=== PATIENT | male | born 1995 | race Caucasian/White ===

== ENCOUNTER 2020-08-08 19:46 | Inpatient (IN) ==
[2020-08-08] MEDS ORDERED: FAMOTIDINE 20MG IV PUSH 20 MG/5 ML SYR IV STA (20:18)
[2020-08-08] MEDS ORDERED: SODIUM CHLORIDE 0.9% 1000ML 1,000 ML IV SCH (20:30)
[2020-08-08 20:58] LABS: Appearance Urine Clear (Clear); Bilirubin Urine Negative (Negative); Blood Urine Negative (Negative); Color Urine Yellow; Glucose Urine UA Negative (Negative); Ketones Urine Negative (Negative); Leukocyte Esterase Urine Negative (Negative); Nitrite Urine Negative (Negative); Protein Urine Negative (Negative); Specific Gravity Urine 1.011 (1.000-1.030); Urobilinogen Urine Negative (Negative); pH Urine 6.5 (4.5-7.5)
[2020-08-08 21:17] LABS: Amphetamines+Metham, Urine Neg (Neg); Barbiturates, Urine Neg (Neg); Benzodiazepine, Urine Neg (Neg); Cocaine, Urine Neg (Neg); MDMA (Ecstacy), Urine Neg (Neg); Methadone, Urine Neg (Neg); Opiate, Urine Neg (Neg); Phencyclidine, Urine Neg (Neg)
[2020-08-08 21:39] LABS: Basophils # (auto) 0.03 K/uL (0-0.2); Basophils % (auto) 0.6 %; Eosinophils # (auto) 0.13 K/uL (0-0.5); Eosinophils % (auto) 2.5 %; Hematocrit (blood only) 46.5 % (42-52); Hemoglobin 16.8 g/dL (14.0-18.0); Immature Granulocytes # (auto) 0.04 K/uL (0.00-0.02); Immature Granulocytes % (auto) 0.8 %; Lymphocytes # (auto) 2.05 K/uL (1.2-3.4); Lymphocytes % (auto) 39.1 %; Mean Corpuscular Hemoglobin 31.4 pg (25-34); Mean Corpuscular Hgb Conc 36.1 g/dL (32-36); Mean Corpuscular Volume 86.9 fL (80-100); Mean Platelet Volume 11.1 fL (7.4-10.4); Monocytes # (auto) 0.56 K/uL (0.11-0.59); Monocytes % (auto) 10.7 %; Neutrophils # (auto) 2.43 K/uL (1.4-6.5); Neutrophils % (auto) 46.3 %; Platelet Count 248 K/uL (130-400); RDW Coefficient of Variation 12.6 % (11.5-14.5); RDW Standard Deviation 40.1 fL (36.4-46.3); Red Blood Count 5.35 M/uL (4.7-6.1); White Blood Count 5.24 K/uL (4.8-10.8)
[2020-08-08 21:56] LABS: Partial Thromboplastin Time 25.4 Seconds (21.0-31.0)
[2020-08-08 22:14] LABS: Albumin Globulin Ratio 1.3 (0.9-2); Albumin Level 4.1 gm/dl (3.4-5.0); BUN Creatinine Ratio 10.2 (10-20); Bilirubin,Total 0.9 mg/dl (0.2-1); Calcium 8.7 mg/dl (8.5-10.1); Creatinine Clr Calc Pharmacy 121.5 ml/min; Est GFR (African American) 127.7; Est GFR (Non-African American) 110.2; Globulin 3.2 gm/dl (2.5-4.0); Total Protein 7.3 gm/dl (6.4-8.2)
[2020-08-08 22:19] LABS: Acetaminophen 214 ug/ml (10-30); Salicylate < 1.7 mg/dl (2.8-20)
[2020-08-08 22:23] LABS: Potassium 3.5 mmol/L (3.5-5.1)
[2020-08-08] MEDS ORDERED: DEXTROSE 5% IV ONE ×2 (22:29→23:32)
[2020-08-08] MEDS ORDERED: AcetylCYSTEINE IV 21 HR REGIMEN (>40KG) IV STA (22:29)
[2020-08-08] MEDS ORDERED: ACETYLCYSTEINE IV ONE ×2 (22:29→23:32)
[2020-08-08 22:36] LABS: Magnesium 2.5 mg/dl (1.8-2.4)
[2020-08-08 23:36] LABS: Influenza A virus by PCR Negative (Neg); Influenza B virus by PCR Negative (Neg); RSV by PCR Negative (Neg); SARS CoV2 RNA(COVID-19) InHosp NEGATIVE (Negative)
--- NOTE | 2020-08-09 00:11 | Emergency Department Note ---
History of Present Illness General Chief complaint: Overdose (Accidental) Stated complaint: OVERDOSE ON MEDICINE Time Seen by Provider: 08/08/20 20:10 History of Present Illness Maximum Pain Intensity: 8 This is a 25-year-old male presenting to the emergency department for evaluation of possible ibuprofen overdose. The patient states that he had body aches and fever today, and took several pills of ibuprofen. This did not initially help his symptoms, and he took increasing and escalating dosage of the medication. He estimates that he took 15 to 20 pills over 3 to 4-hour period. The patient did have vomiting just prior to arrival that he states was primarily water and possibly some of the pills. He is not having significant chest pain, chest tightness, shortness of breath, or abdominal pain. He has a history of anxiety and depression that was previously treated but he is no longer taking medication for this. He states this was not an attempt to harm himself. He rates his discomfort an 8/10. Home Medications Medication Instructions Recorded Confirmed Type No Known Home Medications 08/08/20 08/08/20 History Allergies Allergy/AdvReac Type Severity Reaction Status Date / Time basil Allergy Swelling Verified 03/29/20 00:41 of Lip/Tongue/Throat Past Med/Surg History Medical History No pertinent past medical history Surgical History No pertinent past surgical history Social History Smoking Status: Never smoker Preferred Language: Cameroonian Feels Safe at Home: Yes Review of Systems A total of 10 systems reviewed and were otherwise negative Physical Exam Vital Signs Vital Signs - 24 hr 08/08/20 19:57 08/08/20 21:00 08/08/20 21:04 Temperature 36.6 C Temperature Source Temporal Artery Scan Pulse Rate 128 H 77 Pulse Rate [Bilateral] 73 Pulse Rate from SpO2 Sensor 78 Pulse Rhythm [Bilateral] Regular Pulse Strength [Bilateral] Normal Respiratory Rate 18 17 20 Respiratory Effort / Characteristics Non-Labored Spontaneous Respiratory Depth Normal Normal Respiratory Pattern Regular Blood Pressure 105/64 116/73 Blood Pressure [Right Arm] 116/73 Blood Pressure Mean 77 87 Blood Pressure Mean [Right Arm] 87 Blood Pressure Position [Right Arm] Lying Pulse Oximetry 97 96 99 Oxygen Delivery Method Room Air Room Air Room Air Sepsis Recent Fever Within 48 Hours Yes Sepsis New/Unexplained Change in Mental Status No Sepsis Action Taken by Nursing No Action Required 08/08/20 21:30 08/08/20 22:00 08/08/20 22:39 Temperature Temperature Source Pulse Rate 78 72 77 Pulse Rate [Bilateral] Pulse Rate from SpO2 Sensor 79 73 85 Pulse Rhythm [Bilateral] Pulse Strength [Bilateral] Respiratory Rate 19 21 13 Respiratory Effort / Characteristics Respiratory Depth Respiratory Pattern Blood Pressure 106/59 L 110/67 105/76 Blood Pressure [Right Arm] Blood Pressure Mean 74 81 85 Blood Pressure Mean [Right Arm] Blood Pressure Position [Right Arm] Pulse Oximetry 97 99 99 Oxygen Delivery Method Room Air Room Air Room Air Sepsis Recent Fever Within 48 Hours Sepsis New/Unexplained Change in Mental Status Sepsis Action Taken by Nursing 08/08/20 23:00 08/08/20 23:30 08/09/20 00:00 Temperature Temperature Source Pulse Rate 101 H 96 H 102 H Pulse Rate [Bilateral] Pulse Rate from SpO2 Sensor 104 H 103 H 100 H Pulse Rhythm [Bilateral] Pulse Strength [Bilateral] Respiratory Rate 22 16 15 Respiratory Effort / Characteristics Respiratory Depth Respiratory Pattern Blood Pressure 120/73 132/97 129/85 Blood Pressure [Right Arm] Blood Pressure Mean 88 108 99 Blood Pressure Mean [Right Arm] Blood Pressure Position [Right Arm] Pulse Oximetry 99 98 98 Oxygen Delivery Method Room Air Sepsis Recent Fever Within 48 Hours Sepsis New/Unexplained Change in Mental Status Sepsis Action Taken by Nursing VITALS: Vitals are noted on the nurse's note and reviewed by myself. Vital signs stable. GENERAL: Well-developed, well-nourished, white male, who is in no acute distress and resting comfortably. Patient is cooperative with the examination. HEAD: Normocephalic atraumatic. EARS: External ear normal. External auditory canals clear, tympanic membranes pearly munoz without erythema or effusion bilaterally. EYES: Pupils equal round and reactive to light and accommodation. Conjunctivae without injection, sclerae without icterus. Extraocular movements intact. NOSE: Patent, turbinates without inflammation or discharge. MOUTH: Mucous membranes moist. Tonsils are not enlarged. Pharynx without erythema, blood, or exudate. Uvula midline. Airway patent. NECK: Supple without nuchal rigidity. No lymphadenopathy. No thyromegaly. Cervical spine is nontender. HEART: Regular rate and rhythm without murmurs gallops or rubs. LUNGS: Clear to auscultation bilaterally without wheezes, rales or rhonchi. No retractions or accessory muscle use. ABDOMEN: Positive normal bowel sounds x 4. Soft, nontender, without masses or organomegaly. No guarding or rebound tenderness. MUSCULOSKELETAL: No muscle atrophy, erythema, or edema noted. Full range of motion in all extremities. No tenderness to palpation. Normal gait. Strength 5/5 throughout. NEURO: Patient was alert and oriented to person place and time. CN II through XII grossly intact. No focal neurological deficits. Deep tendon reflexes 2+ throughout. SKIN: The skin was without rashes, erythema, edema, or bruising. Capillary refill less than 2 seconds. Course Administered Medications Discontinued Medications Acetylcysteine (Acetylcysteine Iv 21 Hr Regimen (>40kg)) 1 ea IV NOW STA; Protocol Stop: 08/08/20 22:30 Last Admin: 08/08/20 23:07 Dose: Not Given Documented by: [id number] Sodium Chloride (Nss 1000ml) 1,000 mls @ 999 mls/hr IV .Q1H1M GUSTAVO Stop: 08/08/20 21:30 Last Infusion: 08/08/20 21:32 Dose: 0 mls/hr Documented by: [id number] Admin: 08/08/20 20:34 Dose: 999 mls/hr Documented by: [id number] Famotidine (Pepcid 20mg Iv Push) 20 mg in 5 mls @ 2.5 mls/min IV NOW STA Stop: 08/08/20 20:19 Last Admin: 08/08/20 20:53 Dose: 2.5 mls/min Documented by: [id number] Acetylcysteine 10,860 mg/ (Dextrose) 254.3 mls @ 200 mls/hr IV ONCE ONE Stop: 08/08/20 23:45 Last Admin: 08/08/20 22:56 Dose: 200 mls/hr Documented by: [id number] Critical Care Time Critical Care Time: Yes I have personally spent greater than 30 minutes of critical care time in the direct management of this patient. This includes bedside care, interpretation of diagnostic studies, and testing, discussion with consultants, patient, and family members, and other required patient management activities. This 30 minutes is in excess of all separately billable procedures. Medical Decision Making Differential Diagnosis Differential includes overdose on Tylenol/aspirin/ethanol, ethylene glycol, methanol, prescribed medications, not prescribe medications/street drugs, metabolic process, traumatic process. Laboratory Data Result diagrams: 08/08/20 20:26 08/08/20 20:26 Lab Results 08/08/20 08/08/20 08/08/20 Range/Units 20:26 20:26 20:26 WBC 5.24 (4.8-10.8) K/uL RBC 5.35 (4.7-6.1) M/uL Hgb 16.8 (14.0-18.0) g/dL Hct 46.5 (42-52) % MCV 86.9 (80-100) fL MCH 31.4 (25-34) pg MCHC 36.1 H (32-36) g/dL RDW Std Deviation 40.1 (36.4-46.3) fL RDW Coeff of Valentín 12.6 (11.5-14.5) % Plt Count 248 (130-400) K/uL MPV 11.1 H (7.4-10.4) fL Immature Gran % (Auto) 0.8 % Neut % (Auto) 46.3 % Lymph % (Auto) 39.1 % [place] % (Auto) 10.7 % Eos % (Auto) 2.5 % Baso % (Auto) 0.6 % Neut # (Auto) 2.43 (1.4-6.5) K/uL Lymph # (Auto) 2.05 (1.2-3.4) K/uL [place] # (Auto) 0.56 (0.11-0.59) K/uL Eos # (Auto) 0.13 (0-0.5) K/uL Baso # (Auto) 0.03 (0-0.2) K/uL Immature Gran # (Auto) 0.04 H (0.00-0.02) K/uL PT 10.0 (9.0-12.0) Seconds INR 1.0 (0.9-1.1) APTT 25.4 (21.0-31.0) Seconds PTT Ratio 1.0 Sodium 142 (136-145) mmol/L Potassium 3.5 (3.5-5.1) mmol/L Chloride 108 H (98-107) mmol/L Carbon Dioxide 23 (21-32) mmol/L Anion Gap 11.0 (3-11) BUN 10 (7-18) mg/dl Creatinine 0.96 (0.6-1.4) mg/dl Est Cr Clr Drug Dosing 121.5 ml/min Est GFR ( Amer) 127.7 Est GFR (Non-Af Amer) 110.2 BUN/Creatinine Ratio 10.2 (10-20) Glucose 80 (70-99) mg/dl Calcium 8.7 (8.5-10.1) mg/dl Magnesium 2.5 H (1.8-2.4) mg/dl Total Bilirubin 0.9 (0.2-1) mg/dl AST 29 (15-37) U/L ALT 70 (12-78) U/L Alkaline Phosphatase 80 (45-117) U/L Total Protein 7.3 (6.4-8.2) gm/dl Albumin 4.1 (3.4-5.0) gm/dl Globulin 3.2 (2.5-4.0) gm/dl Albumin/Globulin Ratio 1.3 (0.9-2) Lipase 89 (73-393) U/L Urine Color Urine Appearance (Clear) Urine pH (4.5-7.5) Ur Specific [place] (1.000-1.030) Urine Protein (Negative) Urine Glucose (UA) (Negative) Urine Ketones (Negative) Urine Blood (Negative) Urine Nitrite (Negative) Urine Bilirubin (Negative) Urine Urobilinogen (Negative) Ur Leukocyte Esterase (Negative) Salicylates (2.8-20) mg/dl Urine Opiates Screen (Neg) Ur Methadone, Qual (Neg) Acetaminophen (10-30) ug/ml Urine Barbiturates (Neg) Ur Phencyclidine (PCP) (Neg) U Amphetamin/Meth Scrn (Neg) MDMA (Ecstasy) Screen (Neg) U Benzodiazepines Scrn (Neg) Ur Cocaine Metabolite (Neg) U Marijuana (THC) Screen (Neg) Ethyl Alcohol mg/dL (0-3) mg/dl COVID-19 Eval Order SARS-CoV-2 (PCR) (Negative) Influenza Type A (PCR) (Neg) Influenza Type B (PCR) (Neg) RSV (RT-PCR) (Neg) 08/08/20 08/08/20 08/08/20 Range/Units 20:26 20:26 20:35 WBC (4.8-10.8) K/uL RBC (4.7-6.1) M/uL Hgb (14.0-18.0) g/dL Hct (42-52) % MCV (80-100) fL MCH (25-34) pg MCHC (32-36) g/dL RDW Std Deviation (36.4-46.3) fL RDW Coeff of Valentín (11.5-14.5) % Plt Count (130-400) K/uL MPV (7.4-10.4) fL Immature Gran % (Auto) % Neut % (Auto) % Lymph % (Auto) % [place] % (Auto) % Eos % (Auto) % Baso % (Auto) % Neut # (Auto) (1.4-6.5) K/uL Lymph # (Auto) (1.2-3.4) K/uL [place] # (Auto) (0.11-0.59) K/uL Eos # (Auto) (0-0.5) K/uL Baso # (Auto) (0-0.2) K/uL Immature Gran # (Auto) (0.00-0.02) K/uL PT (9.0-12.0) Seconds INR (0.9-1.1) APTT (21.0-31.0) Seconds PTT Ratio Sodium (136-145) mmol/L Potassium (3.5-5.1) mmol/L Chloride (98-107) mmol/L Carbon Dioxide (21-32) mmol/L Anion Gap (3-11) BUN (7-18) mg/dl Creatinine (0.6-1.4) mg/dl Est Cr Clr Drug Dosing ml/min Est GFR ( Amer) Est GFR (Non-Af Amer) BUN/Creatinine Ratio (10-20) Glucose (70-99) mg/dl Calcium (8.5-10.1) mg/dl Magnesium (1.8-2.4) mg/dl Total Bilirubin (0.2-1) mg/dl AST (15-37) U/L ALT (12-78) U/L Alkaline Phosphatase (45-117) U/L Total Protein (6.4-8.2) gm/dl Albumin (3.4-5.0) gm/dl Globulin (2.5-4.0) gm/dl Albumin/Globulin Ratio (0.9-2) Lipase (73-393) U/L Urine Color Yellow Urine Appearance Clear (Clear) Urine pH 6.5 (4.5-7.5) Ur Specific [place] 1.011 (1.000-1.030) Urine Protein Negative (Negative) Urine Glucose (UA) Negative (Negative) Urine Ketones Negative (Negative) Urine Blood Negative (Negative) Urine Nitrite Negative (Negative) Urine Bilirubin Negative (Negative) Urine Urobilinogen Negative (Negative) Ur Leukocyte Esterase Negative (Negative) Salicylates < 1.7 L (2.8-20) mg/dl Urine Opiates Screen (Neg) Ur Methadone, Qual (Neg) Acetaminophen 214 H* (10-30) ug/ml Urine Barbiturates (Neg) Ur Phencyclidine (PCP) (Neg) U Amphetamin/Meth Scrn (Neg) MDMA (Ecstasy) Screen (Neg) U Benzodiazepines Scrn (Neg) Ur Cocaine Metabolite (Neg) U Marijuana (THC) Screen (Neg) Ethyl Alcohol mg/dL 203.2 H (0-3) mg/dl COVID-19 Eval Order SARS-CoV-2 (PCR) (Negative) Influenza Type A (PCR) (Neg) Influenza Type B (PCR) (Neg) RSV (RT-PCR) (Neg) 08/08/20 08/08/20 08/08/20 Range/Units 20:35 22:40 22:40 WBC (4.8-10.8) K/uL RBC (4.7-6.1) M/uL Hgb (14.0-18.0) g/dL Hct (42-52) % MCV (80-100) fL MCH (25-34) pg MCHC (32-36) g/dL RDW Std Deviation (36.4-46.3) fL RDW Coeff of Valentín (11.5-14.5) % Plt Count (130-400) K/uL MPV (7.4-10.4) fL Immature Gran % (Auto) % Neut % (Auto) % Lymph % (Auto) % [place] % (Auto) % Eos % (Auto) % Baso % (Auto) % Neut # (Auto) (1.4-6.5) K/uL Lymph # (Auto) (1.2-3.4) K/uL [place] # (Auto) (0.11-0.59) K/uL Eos # (Auto) (0-0.5) K/uL Baso # (Auto) (0-0.2) K/uL Immature Gran # (Auto) (0.00-0.02) K/uL PT (9.0-12.0) Seconds INR (0.9-1.1) APTT (21.0-31.0) Seconds PTT Ratio Sodium (136-145) mmol/L Potassium (3.5-5.1) mmol/L Chloride (98-107) mmol/L Carbon Dioxide (21-32) mmol/L Anion Gap (3-11) BUN (7-18) mg/dl Creatinine (0.6-1.4) mg/dl Est Cr Clr Drug Dosing ml/min Est GFR ( Amer) Est GFR (Non-Af Amer) BUN/Creatinine Ratio (10-20) Glucose (70-99) mg/dl Calcium (8.5-10.1) mg/dl Magnesium (1.8-2.4) mg/dl Total Bilirubin (0.2-1) mg/dl AST (15-37) U/L ALT (12-78) U/L Alkaline Phosphatase (45-117) U/L Total Protein (6.4-8.2) gm/dl Albumin (3.4-5.0) gm/dl Globulin (2.5-4.0) gm/dl Albumin/Globulin Ratio (0.9-2) Lipase (73-393) U/L Urine Color Urine Appearance (Clear) Urine pH (4.5-7.5) Ur Specific [place] (1.000-1.030) Urine Protein (Negative) Urine Glucose (UA) (Negative) Urine Ketones (Negative) Urine Blood (Negative) Urine Nitrite (Negative) Urine Bilirubin (Negative) Urine Urobilinogen (Negative) Ur Leukocyte Esterase (Negative) Salicylates (2.8-20) mg/dl Urine Opiates Screen Neg (Neg) Ur Methadone, Qual Neg (Neg) Acetaminophen (10-30) ug/ml Urine Barbiturates Neg (Neg) Ur Phencyclidine (PCP) Neg (Neg) U Amphetamin/Meth Scrn Neg (Neg) MDMA (Ecstasy) Screen Neg (Neg) U Benzodiazepines Scrn Neg (Neg) Ur Cocaine Metabolite Neg (Neg) U Marijuana (THC) Screen Neg (Neg) Ethyl Alcohol mg/dL (0-3) mg/dl COVID-19 Eval Order CovFluRsv at [facility] SARS-CoV-2 (PCR) NEGATIVE (Negative) Influenza Type A (PCR) Negative (Neg) Influenza Type B (PCR) Negative (Neg) RSV (RT-PCR) Negative (Neg) ECG Data Attestation: I personally reviewed and interpreted this ECG as follows: Indication: + toxicologic Additional Comments: Normal sinus rhythm @[address] elevation Normal ECG No previous ECGs available MDM Narrative Physical exam and history were performed. Nursing notes, EMR, and Medication List were personally reviewed. Patient appears to have taken what he thinks is 15 to 20 tablets of ibuprofen. He states this was not done in attempt to harm himself. IV access was establi shed and labs were obtained. EKG is as above. The patient was hydrated with normal saline and given IV Pepcid for comfort. Mental health evaluation labs were also gathered. I did speak with poison control and recommendation at this time was for 4-hour monitoring assuming no significant other medical needs. The case was discussed with my attending, Dr. Miranda, who remained involved in care and decision-making. An order was placed for continuous cardiac monitoring. The monitor shows a rate of normal sinus with 98 rhythm. The patient's blood work is as above and was reviewed. He does not have a significantly elevated white blood cell count or gross anemia. Lipase and transaminases are not diagnostic. Glucose is 80. Magnesium is 2.5. Urine is without evidence of infection. Drug abuse screen is negative. Salicylates is negative. Covid swab was performed and negative. Unfortunately the patient does have a notably elevated Tylenol level at 214. This based on timing would be essentially his 4-hour Tylenol level. He also has an ethyl alcohol of 203. Each of these is highly concerning, and I suspect that he was not taking ibuprofen, and instead this is more consistent with a Tylenol overdose. I did again touch base with poison control with this new information, and will start the patient on NAC. I did discuss the findings with the patient and was very clear with my concern for his wellbeing with a large amount of Tylenol and alcohol on board. The patient is not medically cleared at this time and will need admission for further treatment. I did offer to speak with his parents, but he declined. The patient is willing to stay in the hospital. Case was discussed with the on-call hospitalist team. Please see their dictation for further patient course, plan, and disposition. The chart was completed utilizing [employer] Speech Voice Recognition Software. Grammatical errors, random word insertions, pronoun errors, and incomplete sentences are an occasional consequence of this system due to software limitations, ambient noise, and hardware issues. Any formal questions or concerns about the content, text, or information contained within the body of this dictation should be directly addressed to the provider for clarification. . Impression & Plan Acetaminophen overdose, Alcohol intoxication Discharge Plan Visit Data Chief Complaint: Overdose (Accidental) Stated Complaint: OVERDOSE ON MEDICINE ED Provider: Donovan Miranda ED Midlevel Provider: Sabino Murray Discharge Problem: Acetaminophen overdose, Alcohol intoxication Forms Stand Alone Forms: My [facility] Prescriptions Prescriptions: No Action No Known Home Medications RF: 0 Referrals Referrals: [facility] [Primary Care Provider] - Discharge Problem: Acetaminophen overdose Qualifiers: Encounter type: initial encounter Injury intent: undetermined intent Qualified Code(s): T39.1X4A - Poisoning by 4-Aminophenol derivatives, undetermined, initial encounter Alcohol intoxication Qualifiers: Complication of substance-induced condition: uncomplicated Qualified Code(s): F 10.920 - Alcohol use, unspecified with intoxication, uncomplicated
[2020-08-09] MEDS ORDERED: ONDANSETRON INJ 2 MG/ML 2 ML VIAL IV PRN (00:28)
--- NOTE | 2020-08-09 00:29 | History & Physical Report ---
Date of Service August 09, 2020 Assessment & Plan (1) Acetaminophen overdose: Patient is a 25 year old male with no PMHx that presented with chief complaint of nausea and vomiting after consuming 15-20 pills of acetaminophen 2 hours prior to presentation to the ED. Although patient continues to deny any thoughts towards self harm or that this was an attempted suicide, the situation still bears significant concern with the amount of pills taken in addition to the chronic alcohol abuse. Would hesitate to assume that this was a one off "accident" without further evaluation. Acetaminophen Overdose -Patient with Acetaminophen level 214 roughly 2 hours after ingestion -ED provider discussed with Poison control recommending that NAC be initiated -Patient started on the 20 hour NAC protocol with close monitoring -Will recheck Tylenol level, CMP, and INR 2 hours prior to completion of the last dose of the 20 hour NAC protocol (18:00 08/09/20) -Zofran PRN for nausea -LR 125ml/hr x2L -Still with significant concerns regarding the situation, will order 1:1 monit oring for patient at this time -Will also consult Psychiatry for evaluation of the patient Alcohol Abuse -Significant alcohol use per patient's history of upwards of 26 beverages over the course of a weekend -Last drink was roughly 12:00 on day of admission 08/08/20 -Will order AWSS protocol with PRN Ativan, though suspect patient will not require Ativan at this time. Dispo: Med/Surg telemetry for continuous monitoring and administration of NAC over the course of 20 hours per protocol. IVF hydration. FEN: NPO, LR 125ml/hr x2L DVT: Low risk, SCDs Code: Full (2) Alcohol intoxication: History of Present Illness Chief Complaint: Acetaminophen Overdose, Nausea and Vomiting Primary Care Provider: [facility] Patient is a 25 year old male with no PMHx that presented with chief complaint of nausea and vomiting after consuming 15-20 pills of acetaminophen 2 hours prior to presentation to the ED. Patient notes that around 6PM today he was feeling feverish, had a headache, and was having muscle aches when he decided to take what he initially thought was ibuprofen, now known to be acetaminophen, for his symptoms. He states that he is unsure of the dosage of each tablet, but that he continued taking them since he did not notice any resolution or improvement of his symptoms and upon reaching 15-20 tablets 1 hour later at 7PM, was having vomiting at which point ne decided to come to the ED for evaluation. Patient also disclosed after being questioned that he had been drinking throughout the weekend and up until 12PM of day of admission, 6 hours prior to taking all of the tylenol. He notes that he tends to drink a fair amount on the weekends and that this is a regular occurrence. He will have up to 2/3 a handle of vodka or 26 shots over the course of a weekend. He notes that while he does have a history of anxiety and depression, that this was not an act of self harm or an attempt at suicide. He states that he was not feeling suicidal, did not have a plan or intent to harm himself, and was not currently having thoughts of self harm or suicide. He states that this was "just an accident." Currently he notes that he is having nausea and vomiting. Denies chest pain, SOB, abdominal pain, fever, chills, dysuria, headache. Med Hx: None Surg Hx: None Soc Hx: No tobacco or illicit drug use. Up to 26 alcoholic beverages/week primarily over the course of 3 days on the weekend. 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 Beliefs That Will Affect Care: None Current Living Situation: Other Current Living Situation Comment: roommates Feels Safe at Home: Yes Safety Concerns: Feels Safe At This Time Assistive Devices: None Review of Systems Review of Systems: All systems reviewed & are unremarkable except as noted in Subjective Physical Exam Constitutional: well developed and well nourished Eyes: PERRL, conjunctivae normal, anicteric sclerae ENMT: external ear and nose normal, oropharynx normal Respiratory: normal respiratory effort, lungs clear to auscultation Cardiovascular: RRR, no murmur, no edema Gastrointestinal (Abdomen): normal bowel sounds, soft, nontender, no hepatosplenomegaly Musculoskeletal: no cyanosis or clubbing, extremities motor strength 5/5 Skin: no rashes, warm and dry Neurologic: PERRL, EOMI, accommodation nl, no face palsy, no dysarthria Psychiatric: A+Ox3, euthymic affect Results & Data Results & Data (MN) Vital Signs (Past 12 Hours) Vital Signs Temp Pulse Pulse Resp BP BP Pulse Ox 08/09/20 00:00 102 H 15 129/85 98 08/08/20 23:30 96 H 16 132/97 98 08/08/20 23:00 101 H 22 120/73 99 08/08/20 22:39 77 13 105/76 99 08/08/20 22:00 72 21 110/67 99 08/08/20 21:30 78 19 106/59 L 97 08/08/20 21:04 73 20 116/73 99 08/08/20 21:00 77 17 116/73 96 08/08/20 19:57 36.6 C 128 H 18 105/64 97 Code Status & VTE Plan VTE Prophylaxis Plan VTE Prophylaxis will be ordered: Yes Supervising Physician Co-Signing Physician Notes Patient seen and examined, chart reviewed, case discussed with Dr. Osborne and I agree with his assessment and plan as above. Briefly, patient is a 25yo male presenting with accidental Acetaminophen overdose + EtOH consumption. Patient took 15-20 tablets of what he initially thought to be Ibuprofen. Found to have elevated Acetaminophen level in ER. Ingestion was 2 hours prior to arrival. Uncertain strength or preparation of Acetaminophen. +EtOH use as well. Patient stated that this was not an attempt to harm himself. He has history of depression with fleeting thoughts of self harm. Denies plan or prior attempt to end his life. He does display a concerning pattern of EtOH consumption - drinking heavily on the weekends. Nontoxic on exam No RUQ tenderness AA&O x 4 Labs and images reviewed. Acetaminophen = 214 AST/ALT/INR WNL BnAN=318.2 Assessment/Plan - Acute Acetaminophen overdose with concomitant EtoH intoxication -Poison control contacted by ER -NAC per 20 hour protocol initiated -Monitor for evidence of liver dysfunction -Repeat labs prior to NAC completion -Psychiatry evaluation - patient denies intentions to harm self, however, his actions are concerning -Remainder of plan as above Resident Activity Tracking Resident Involvement: Resident Care Provided Care Provided: Adult Hospital Medicine (1) Alcohol intoxication Complication of substance-induced condition: uncomplicated Qualified Code(s): F10.920 - Alcohol use, unspecified with intoxication, uncomplicated (2) Acetaminophen overdose Encounter type: initial encounter Injury intent: undetermined intent Qualified Code(s): T39.1X4A - Poisoning by 4-Aminophenol derivatives, undetermined, initial encounter
[2020-08-09] MEDS ORDERED: ONDANSETRON INJ 2 MG/ML 2 ML VIAL IV STA (00:42)
[2020-08-09] MEDS: LACTATED RINGER'S 1,000 ML IV SCH ×2 (01:28→09:55)
[2020-08-09] MEDS ORDERED: LORazepam 1 MG TAB PO PRN (03:06)
[2020-08-09] MEDS ORDERED: DEXTROSE 5% IV ONE (03:32)
[2020-08-09] MEDS ORDERED: ACETYLCYSTEINE IV ONE (03:32)
--- NOTE | 2020-08-09 05:56 | Billing Data ---
Date of Service August 09, 2020 Coding Level of Care Code 35848 Initial Inpt Care Lvl 2
[2020-08-09 07:11] LABS: Basophils # (auto) 0.02 K/uL (0-0.2); Basophils % (auto) 0.5 %; Eosinophils # (auto) 0.02 K/uL (0-0.5); Eosinophils % (auto) 0.5 %; Hematocrit (blood only) 42.2 % (42-52); Hemoglobin 15.2 g/dL (14.0-18.0); Immature Granulocytes # (auto) 0.01 K/uL (0.00-0.02); Immature Granulocytes % (auto) 0.2 %; Lymphocytes # (auto) 1.19 K/uL (1.2-3.4); Lymphocytes % (auto) 27.2 %; Mean Corpuscular Hemoglobin 31.3 pg (25-34); Mean Corpuscular Volume 86.8 fL (80-100); Mean Platelet Volume 10.8 fL (7.4-10.4); Monocytes # (auto) 0.44 K/uL (0.11-0.59); Neutrophils % (auto) 61.6 %; Platelet Count 253 K/uL (130-400); RDW Coefficient of Variation 12.8 % (11.5-14.5); RDW Standard Deviation 40.9 fL (36.4-46.3); Red Blood Count 4.86 M/uL (4.7-6.1); White Blood Count 4.38 K/uL (4.8-10.8)
[2020-08-09 07:52] LABS: Albumin Level 3.6 gm/dl (3.4-5.0); BUN Creatinine Ratio 7.2 (10-20); Calcium 8.1 mg/dl (8.5-10.1); Creatinine Clr Calc Pharmacy 144.2 ml/min; Est GFR (African American) 144.9; Potassium 3.8 mmol/L (3.5-5.1)
[2020-08-09 07:54] LABS: Albumin Globulin Ratio 1.2 (0.9-2); Bilirubin,Total 1.1 mg/dl (0.2-1); Total Protein 6.6 gm/dl (6.4-8.2)
--- NOTE | 2020-08-09 09:05 | Psychiatric Consultation ---
Date of Consultation August 09, 2020 Impression / Recommendations Impression Dr. Willow Kim was directly involved in review and discussion of the patient's case and participated in medical decision making regarding treatment recommendations. RECOMMENDATIONS: 08/09/20 - Psychiatric consultation requested to evaluate patient s/p acetaminophen overdose, which patient claims was accidental. Concern related to past psychiatric history (treatment for depression, previous SI without act of furtherance). Pt was also intoxicated at time of ED presentation, BAL was 203.2. - Treatment of acetaminophen overdose, as well as monitoring and treatment of any alcohol withdrawal symptoms per primary team. - Pt has been consistent in his reports that the overdose of acetaminophen was accidental, and he consistently denies intent to harm himself or end his life with this action. Pt does admit that his alcohol use was likely clouding his judgment, but remains adamant that his overdose was not a suicide attempt. - Would be beneficial to gather collateral information from any supports. Pt declined to sign ELTON for our service to reach out to his mother, however, would be helpful to obtain collateral from any individuals with whom he permits communication to clarify any recent concerns for depressed mood or self- harm/safety concerns. - Pt did agree to allow our service to assist with outpatient referrals for dual-diagnosis counseling and psychiatry. Pt had responded well to sertraline in the past, reviewed recommendations to avoid new medications until medically stabilized, especially in the setting of concern for alcohol withdrawal. - Appreciate the opportunity to participate in the care of this patient. Please reach out to our service with any additional questions or updates. Risk Factors Assessment Do You Have Access To A Gun?: No Psych History Identifying Data 25-year-old male admitted medically on 08/08/20 after presenting to the ED s/p what is reported to be an accidental acetaminophen overdose. Pt had been drinking prior to presentation, BAL was 203.2 at time of ED presentation. Psychiatric consultation was requested by our hospitalist service to further evaluate the patient to attempt to rule out intentional overdose. Pt has denied self-harm or suicidal intent during previous assessments. Chief Complaint "This was completely an accidental Tylenol overdose." History of Present Illness Ricco Murray is a 25-year-old male admitted medically on 08/08/20 after presenting to the ED s/p what is reported to be an accidental acetaminophen overdose. ED triage assessment reports the patient stated he took 15-20 pills of what he believed to be ibuprofen (actually acetaminophen) over the course of 3-4 hours to treat fever and "generalized illness", reportedly presented to the ED when he realized he was feeling worse and may have taken too many. H&P documentation, however, suggests the patient reported taking the pills over the course of only 1 hour. Pt has denied self-harm or suicidal intent during conversations with staff thus far. Psychiatric consultation was requested by our hospitalist service to further evaluate the patient, to attempt to further clarify if the overdose may have been intentional. Collateral obtained from psychiatric nurse liaison who completed initial psychiatric assessment. Pt maintained reports that the overdose was accidental. He did admit that his alcohol use has increased and was reportedly willing to consider outpatient D&A therapy. Pt declined to sign an ELTON for his mother, although he reported that she is aware he is in the hospital. Pt was cooperative with psychiatric evaluation with this provider. He reiterated "this was completely an accidental Tylenol overdose." Pt stated that he was experiencing a headache yesterday and began taking what he believed to be ibuprofen to treat the pain. Pt admits "it was too much in too short of a time period, I get that that was stupid." Pt tells this provider he took ~15 pills over the course of 3-4 hours before becoming nauseated and presenting to the ED. When asked about his perceived level of intoxication, the patient states "I was definitely buzzed, I'm sure that had something to do with it." Pt maintains that he was not experiencing suicidal thoughts and he adamantly denies this was a suicide attempt. Pt does admit to history of SI about one year ago. He states he had considered hanging himself, but denies act of furtherance. Pt sought outpatient treatment at that time and was started on sertraline. It was reportedly effective and was discontinued 6 months later when symptoms improved. Pt does admit to willingness for outpatient psychiatric referrals. Pt denies current SI or other safety concerns. He continues to decline to sign an ELTON for any outpatient supports, but admits he had just spoken with his mother on the phone prior to our encounter. He does admit that parents have been checking in more frequently about the patient's mental health, stating "they know this has been a difficult semester." Pt admits to feeling his alcohol use has been a bit excessive recently. He does feel that he has been using alcohol as a way to escape stress, but does feel he has been successful at prioritizing his school work over his alcohol use. Pt admits to consuming between 2 - 5 days per week, usually less if his school schedule is particularly demanding. Pt admits to consuming between 4 - 11 beverages on a night he partakes (whiskey, vodka, beer). Pt denies history of alcohol withdrawal or times of seeking professional support. Pt admits to desire to cut back on his alcohol use, but does not feel it has become a significant problem at this time. Pt does admit to gradually worsening depression over the past 6 months. He reports 4-5 days a week of lower than average mood. This is accompanied by poor motivation, fatigue, and episodes of hopelessness. Pt denies recent SI. He denies hallucinations, paranoia, OCD, PTSD, history of eating disorder, or other acute psychiatric concerns. Past Psychiatric History Outpatient Services: No current outpatient psychiatric services; had outpatient treatment last year in [place]. Previous Psych Admissions: None Do You Have Access To A Gun?: No History of Previous Suicide Attempt: No Past Medication Trials: Pt was prescribed sertraline ~1 year ago, reports decent response. Medication discontinued after ~6 months due to reports that symptoms improved. Allergies Allergy/AdvReac Type Severity Reaction Status Date / Time basil Allergy Swelling Verified 03/29/20 00:41 of Lip/Tongue/Throat Home Medications Medication Instructions Recorded Confirmed Type No Known Home Medications 08/08/20 08/08/20 History Family History Pt reports a maternal aunt with anxiety. Denies other known family history of mental health conditions. Substance Abuse History Pt admits to increased alcohol use within the past few months. Pt states his weekly use ranges from 2-5 days per week. Pt admits to consuming between 4 - 11 drinks on the days he consumes, generally drinking beer, whiskey, or vodka. Pt admits to feeling as though he needs to cut back on use, but denies feeling it is a significant concern at this time. Pt denies use of other illicit substances. Denies tobacco use. 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) Marital Status: Single Number Of Children: None History of Legal Problems: Denies Psychological Trauma History Comment: Denies Patient History Medical History No pertinent past medical history Surgical History No pertinent past surgical history Social History Smoking Status: Never smoker Hx Alcohol Use: Yes Alcohol type: beer and hard liquor Hx Substance Use: No Preferred Language: Ecuadorean Communication Ability: Effective Assessment Nurse Practitioner Required: No Current Living Situation: Other Current Living Situation Comment: roommates Feels Safe at Home: Yes Safety Concerns: Feels Safe At This Time Assistive Devices: None Physical Exam Psychiatric: Orientation: alert, oriented x 3 and cooperative (and pleasant) Apperance: appropriately dressed, appropriately groomed and appeared stated age Thin-appearing male, sitting upright in bed in no acute distress. Pt is appropriately dressed for clinical setting, wearing hospital gown. Hair is long but appears clean. Pt wearing corrective lenses. Level of hygiene and grooming appears adequate. Eye Contact: good eye contact Motor Behavior: no abnormal motor movements (observed while laying in bed) Speech: normal rate/rhythm/volume of speech Affect: + blunted affect (nervously smiling) Mood: + depressed mood reports mood has been "gradually worsening" over the past 6 months. Thought Process: goal directed thought process and clear/coherent thought process Thought Content: reality based without delusions and + hopelessness (episodically ) Suicidal Thoughts: denies suicidal thoughts, denies suicidal plan and denies suicidal intent Homicidal Thoughts: denies homicidal thoughts Hallucinations: no auditory hallucinations and no visual hallucinations Cognition: attention grossly intact and language grossly intact Estimated Intelligence: consistent with education level Insight: + fair insight Judgement: + fair judgement Vital Signs (Past 24 Hours): Last Vital Signs Temp 36.7 C 08/09/20 07:07 Pulse 74 08/09/20 07:14 Resp 18 08/09/20 07:07 BP 129/74 08/09/20 07:07 Pulse Ox 98 08/09/20 07:07 Review of Systems Constitutional: denied, reports resolution of initial headache Cardiovascular: denied Respiratory: denied Gastrointestinal: denied, reports resolution of recent nausea Neurological: denied Psychiatric: denies symptoms other than stated above Total of at least 10 systems reviewed, pertinent positives as above and in HPI. Results & Data (PSY) Medications Administered Acetylcysteine 7,240 mg/ (Dextrose) 1,036.2 mls @ 62.5 mls/hr IV ONCE ONE Stop: 08/09/20 20:06 Last Admin: 08/09/20 05:22 Dose: 62.5 mls/hr Documented by: [id number] Lactated Ringer's (Lr) 1,000 mls @ 125 mls/hr IV .Q8H GUSTAVO Stop: 08/09/20 16:29 Last Admin: 08/09/20 01:28 Dose: 125 mls/hr Documented by: [id number] Coding Level of Care Code 94436 U Intl Hosp Care Lvl 2
--- NOTE | 2020-08-09 15:02 | Electrocardiogram Report ---
Test Reason : Blood Pressure : / mmHG Vent. Rate : 075 BPM Atrial Rate : 075 BPM P-R Int : 172 ms QRS Dur : 086 ms QT Int : 384 ms P-R-T Axes : 068 072 057 degrees QTc Int : 428 ms Normal sinus rhythm Normal ECG No previous ECGs available Confirmed by Donovan Persaud ([id number]) on 08/09/2020 3:02:22 PM Referred By: REFERRED SELF Confirmed By:Donovan Persaud
[2020-08-09 18:20] LABS: INR 1.2 (0.9-1.1); Prothrombin Time 11.6 Seconds (9.0-12.0)
[2020-08-09 18:26] LABS: Albumin Level 3.5 gm/dl (3.4-5.0); BUN Creatinine Ratio 3.5 (10-20); Bilirubin Direct 0.2 mg/dl (0-0.2); Calcium 8.6 mg/dl (8.5-10.1); Est GFR (Non-African American) 91.5; Potassium 3.4 mmol/L (3.5-5.1)
[2020-08-09 18:29] LABS: Albumin Globulin Ratio 1.2 (0.9-2); Globulin 2.9 gm/dl (2.5-4.0); Total Protein 6.4 gm/dl (6.4-8.2)
[2020-08-10 12:54] LABS: INR 1.1 (0.9-1.1)
[2020-08-10 13:29] LABS: Albumin Globulin Ratio 1.3 (0.9-2); Albumin Level 3.9 gm/dl (3.4-5.0); BUN Creatinine Ratio 13.3 (10-20); Creatinine Clr Calc Pharmacy 131.3 ml/min; Est GFR (Non-African American) 120.8; Globulin 2.9 gm/dl (2.5-4.0); Potassium 4.1 mmol/L (3.5-5.1); Total Protein 6.8 gm/dl (6.4-8.2)
--- NOTE | 2020-08-17 21:59 | Discharge Summary ---
Date of Service August 10, 2020 Admission HPI Per Admitting Provider Patient is a 25 year old male with no PMHx that presented with chief complaint of nausea and vomiting after consuming 15-20 pills of acetaminophen 2 hours prior to presentation to the ED. Patient notes that around 6PM today he was feeling feverish, had a headache, and was having muscle aches when he decided to take what he initially thought was ibuprofen, now known to be acetaminophen, for his symptoms. He states that he is unsure of the dosage of each tablet, but that he continued taking them since he did not notice any resolution or improvement of his symptoms and upon reaching 15-20 tablets 1 hour later at 7PM, was having vomiting at which point ne decided to come to the ED for evaluation. Patient also disclosed after being questioned that he had been drinking throughout the weekend and up until 12PM of day of admission, 6 hours prior to taking all of the tylenol. He notes that he tends to drink a fair amount on the weekends and that this is a regular occurrence. He will have up to 2/3 a handle of vodka or 26 shots over the course of a weekend. He notes that while he does have a history of anxiety and depression, that this was not an act of self harm or an attempt at suicide. He states that he was not feeling suicidal, did not have a plan or intent to harm himself, and was not currently having thoughts of self harm or suicide. He states that this was "just an accident." Currently he notes that he is having nausea and vomiting. Denies chest pain, SOB, abdominal pain, fever, chills, dysuria, headache. Med Hx: None Surg Hx: None Soc Hx: No tobacco or illicit drug use. Up to 26 alcoholic beverages/week primarily over the course of 3 days on the weekend. Principal Diagnosis acetaminophen overdose Discharge Exam Constitutional: well developed and well nourished Eyes: PERRL, conjunctivae normal, anicteric sclerae ENMT: external ear and nose normal, oropharynx normal Respiratory: normal respiratory effort, lungs clear to auscultation Cardiovascular: RRR, no murmur, no edema Gastrointestinal (Abdomen): normal bowel sounds, soft, nontender, no hepatosplenomegaly Musculoskeletal: no cyanosis or clubbing, extremities motor strength 5/5 Skin: no rashes, warm and dry Neurologic: PERRL, EOMI, accommodation nl, no face palsy, no dysarthria Psychiatric: A+Ox3, euthymic affect Discharge Data Allergies Allergy/AdvReac Type Severity Reaction Status Date / Time youngil Allergy Swelling Verified 03/29/20 00:41 of Lip/Tongue/Throat Consultations 08/08/20 22:47 ED Decision to Admit Stat 08/09/20 03:06 Consult Psychiatry Routine Hospital Course (1) Acetaminophen overdose: Patient is a 25 year old male with no PMHx that presented with chief complaint of nausea and vomiting after consuming 15-20 pills of acetaminophen 2 hours prior to presentation to the ED. Although patient continues to deny any thoughts towards self harm or that this was an attempted suicide, the situation still bears significant concern with the amount of pills taken in addition to the chronic alcohol abuse. Would hesitate to assume that this was a one off "accident" without further evaluation. Acetaminophen Overdose -Patient with Acetaminophen level 214 roughly 2 hours after ingestion -ED provider discussed with Poison control recommending that NAC be initiated -Patient started on the 20 hour NAC protocol with close monitoring -Will recheck Tylenol level, CMP, and INR 2 hours prior to completion of the last dose of the 20 hour NAC protocol (18:00 08/09/20) -Zofran PRN for nausea -LR 125ml/hr x2L -Still with significant concerns regarding the situation, will order 1:1 monitoring for patient at this time -Will also consult Psychiatry for evaluation of the patient -At discharge, labs were benign, and patient was feeling well. Psych does not feel patient requires involuntary placement to psych brice. will followup with behavior health as an outpatient Alcohol Abuse -Significant alcohol use per patient's history of upwards of 26 beverages over the course of a weekend -Last drink was roughly 12:00 on day of admission 08/08/20 -Did not go through withdrawal, Patient reports he wants to cut back from drinking, but not interested in going to AA at this time. He will discuss this further at behavior therapy. (2) Alcohol intoxication: Total Time Total Time Spent Total Time Spent (In Minutes): 32 Total Time Includes: Examination of the Patient, Discharge Planning and Medication Reconciliation Discharge Plan Discharge Items Patient Disposition: Home - Self-Care Reason For Visit: ACETAMINOPHEN OVERDOSES Discharge Diagnosis: Acetaminophen overdose Activity: Resume your previous activity Non-emergency contact: Primary Care Provider Call non-emergency contact if: you have any medication questions Follow-up/Referrals: [facility] [Primary Care Provider] - Diet: Regular Addtl Attending Provider Instructions: You were seen for tylenol intoxication. Will recommend that you followup with Psych or counselling. Will recommend followup with PCP or [facility] for management of depression.. Will recommend you cut back on alcohol as this is actually a depressant and could make your symptoms worse. Dr. Robin [phone] September 21, 2020 @ 10 am Telehealth visit Pending Studies at Discharge: No Stand-Alone Forms: My [employer], Smoking Cessation Medications and DC Order Prescriptions: No Action No Known Home Medications RF: 0 Discharge Orders: Discharge Order (Routine); Ordered 08/10/20 Ordered By: Eric Quesada Admission Data Admit Date/Time: 08/09/20 00:28 Attending Provider: Eric Quesada Admit Provider: Gregory Osborne Primary Care Provider: [facility] Other Providers: Willow Kim Other Interventions: Discharge Summary Assessment (RN) Last Done: 08/10/20 13:30 PSY Interdisciplinary Discharge Planning Last Done: 08/10/20 10:31 Coding Level of Care Code D/C Day Management >30 mins Diagnoses Acetaminophen overdose T39.1X4A Encounter type: initial encounter Injury intent: undetermined intent Alcohol intoxication F10.920 Complication of substance-induced condition: uncomplicated
== END 2020-08-10 15:47 | disposition home or self-care (01) | DRG 918 ==
LOC: ED 19:46 → SUATTDRO 08-09 00:28 → 2N 08-09 00:28